=== PATIENT | male | born 1965 | race Native Hawaiian/Other Pacific Islander ===

== ENCOUNTER 2016-07-29 09:51 | Outpatient (CLI) | payer BC | END 2016-07-29 19:12 | disposition home or self-care (01) | LOC: RAD 09:51 | DX: M25.522 Pain in left elbow (principal) ==

== ENCOUNTER 2017-11-03 09:27 | Outpatient (CLI) | payer BC | END 2017-11-03 23:02 | disposition home or self-care (01) | LOC: RAD 09:27 | DX: J20.8 Acute bronchitis due to other specified organisms (principal) ==